=== PATIENT | male | born 1970 | race Native Hawaiian/Other Pacific Islander ===

== ENCOUNTER 2021-09-21 23:50 | Emergency (ER) | payer OTHER ==
[~2021-09-21] VITALS: Ht 172.7 cm; Wt 76.7 kg
[2021-09-21 23:58] VITALS: BP 112/61; TEMP 99
[2021-09-22 00:48] LABS: PLATELET COUNT 231 K/uL (142-355)
[2021-09-22 00:53] LABS: POTASSIUM 4.2 mmol/L (3.6-5.2)
[2021-09-22] MEDS ORDERED: ASPIRIN 81 LOW81 MG PO (03:31)
[2021-09-22] MEDS ORDERED: ARIPIPRAZOLE20 MG PO (03:31)
[2021-09-22] MEDS ORDERED: LORA0.5T17 PO (03:32)
[2021-09-22] MEDS ORDERED: BUSPIRONE HCL10 MG PO (03:33)
[2021-09-22] MEDS ORDERED: BACLOFEN10 MG PO (03:33)
[2021-09-22] MEDS ORDERED: ALL DAY ALLG10 MG PO (03:34)
[2021-09-22] MEDS ORDERED: D3 HIGH POT5000 UNIT PO (03:35)
[2021-09-22] MEDS ORDERED: CLON0.5T36 PO (03:35)
[2021-09-22] MEDS ORDERED: MULTIVITAMI1 PO (03:36)
[2021-09-22] MEDS ORDERED: DIVALPROEX250 MG PO (03:38)
[2021-09-22] MEDS ORDERED: FAMOTIDINE20 MG PO (03:39)
[2021-09-22] MEDS ORDERED: GABA400C2 PO (03:39)
[2021-09-22] MEDS ORDERED: INDOMETHACIN25 MG PO (03:41)
[2021-09-22] MEDS ORDERED: LAMOTRIGINE150 MG PO (03:41)
[2021-09-22] MEDS ORDERED: ESCITALOPRAM10 MG PO (03:42)
[2021-09-22] MEDS ORDERED: LORA2INJ21 INJ (03:43)
[2021-09-22] MEDS ORDERED: TRAZODONE HYDR150 MG PO (03:43)
== END 2021-09-22 01:20 | disposition still patient (30) ==
LOC: ED 23:50
PROVIDERS: Emergency Medicine
DX: R46.89 Other symptoms and signs involving appearance and behavior (principal); F20.89 Other schizophrenia; Z11.52 Encounter for screening for COVID-19; Z04.6 Encounter for general psychiatric examination, requested by authority
CPT/HCPCS: 36415; 80053; 85027; 87635; 93005; 99283; U0003